=== PATIENT | female | born 1980 | race Caucasian/White ===

== ENCOUNTER 2018-02-02 14:08 | Emergency (ER) | payer MEDICAID, OTHER ==
[~2018-02-02] VITALS: Ht 162.6 cm; Wt 118.2 kg
[2018-02-02 14:15] VITALS: BP 188/119
== END 2018-02-02 15:01 | disposition home or self-care (01) ==
LOC: ER 14:08
DX: R32 Unspecified urinary incontinence (principal); Z88.5 Allergy status to narcotic agent; Z88.0 Allergy status to penicillin; Z88.1 Allergy status to other antibiotic agents
CPT/HCPCS: 99281

== ENCOUNTER 2018-02-08 17:35 | Emergency (ER) | payer MEDICAID, OTHER ==
[~2018-02-08] VITALS: Ht 162.6 cm; Wt 115.0 kg
[2018-02-08 18:02] VITALS: BP 133/80
[2018-02-08] MEDS ORDERED: CLIN300C85 PO (18:31)
[2018-02-08] MEDS ORDERED: IBUP-1984 PO (18:31)
== END 2018-02-08 18:40 | disposition home or self-care (01) ==
LOC: ER 17:36
DX: L02.416 Cutaneous abscess of left lower limb (principal); Z88.0 Allergy status to penicillin; Z88.6 Allergy status to analgesic agent; Z88.8 Allergy status to other drugs, medicaments and biological substances
CPT/HCPCS: 99283

== ENCOUNTER 2018-05-02 17:56 | Emergency (ER) | payer MEDICAID, OTHER ==
[~2018-05-02] VITALS: Ht 162.6 cm; Wt 117.9 kg
[~2018-05-02 17:56] MED LIST: CLIN-96 PO
[2018-05-02 18:12] VITALS: BP 138/91
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
[2018-05-02] MEDS ORDERED: CYCL-1 PO (19:32)
[2018-05-02] MEDS ORDERED: NAPR-56 PO (19:32)
[2018-05-02] MEDS ORDERED: cyclobenzaprine 10mg tablet PO ONE (19:35)
[2018-05-02] MEDS ORDERED: naproxen 500mg tablet PO ONE (19:35)
[2018-05-02] MEDS ORDERED: HYDROcodone/acetaminophen 10/325mg tab PO ONE (19:35)
== END 2018-05-02 20:14 | disposition home or self-care (01) ==
LOC: ER 17:56
DX: R07.81 Pleurodynia (principal); R05 Cough; F17.200 Nicotine dependence, unspecified, uncomplicated; Z88.0 Allergy status to penicillin; Z88.5 Allergy status to narcotic agent; Z88.1 Allergy status to other antibiotic agents; Z79.2 Long term (current) use of antibiotics; Z79.899 Other long term (current) drug therapy
CPT/HCPCS: 71045; 99284

== ENCOUNTER 2018-07-21 07:54 | Emergency (ER) | payer OTHER ==
[~2018-07-21] VITALS: Ht 162.6 cm; Wt 127.3 kg
[~2018-07-21 07:54] MED LIST changes: +CYCL-1 PO
[2018-07-21 07:55] VITALS: BP 147/50
[2018-07-21] MEDS ORDERED: CYCL-1 PO (08:26)
== END 2018-07-21 08:40 | disposition home or self-care (01) ==
LOC: ER 07:54
DX: S46.912A Strain of unspecified muscle, fascia and tendon at shoulder and upper arm level, left arm, initial encounter (principal); F17.200 Nicotine dependence, unspecified, uncomplicated; Z88.0 Allergy status to penicillin; Z88.5 Allergy status to narcotic agent; Z88.1 Allergy status to other antibiotic agents; Z79.899 Other long term (current) drug therapy; E66.01 Morbid (severe) obesity due to excess calories; Z68.42 Body mass index [BMI] 45.0-49.9, adult; X50.3XXA Overexertion from repetitive movements, initial encounter; Y93.89 Activity, other specified; Y92.89 Other specified places as the place of occurrence of the external cause; Y99.8 Other external cause status
CPT/HCPCS: 99283

== ENCOUNTER 2018-08-13 16:26 | Emergency (ER) | payer MEDICAID ==
[~2018-08-13] VITALS: Ht 162.6 cm; Wt 115.9 kg
--- NOTE | 2018-08-13 17:41 | NUR ---
Lab attempted to draw patients blood 6 times by to separate phlebotomists with no results. Will need to await room assignment for further attempts.
[2018-08-13] MEDS ORDERED: ondansetron/PF 4mg/2ml inj IV ONE (18:15)
[2018-08-13] MEDS ORDERED: ketorolac trometh. 30mg/ml inj. IV ONE (18:15)
[2018-08-13 18:54] LABS: BASOPHILS # (AUTO) 0.1 X10'3 (0-0.2); EOSINOPHILS # (AUTO) 0.3 X10'3 (0-0.9); EOSINOPHILS % (AUTO) 2.3 % (0-6); HEMATOCRIT 42.1 % (35.0-45.0); HEMOGLOBIN 13.9 g/dl (12.0-16.0); MEAN CORPUSCULAR HEMOGLOBIN 30.7 PG (27.0-31.0); MEAN CORPUSCULAR HGB CONC 33.1 g/dL (33.0-36.5); MEAN CORPUSCULAR VOLUME 92.7 FL (78-98); MEAN PLATELET VOLUME 7.5 FL (7.4-10.4); MONOCYTES # (AUTO) 1.1 X10'3 (0-0.9); MONOCYTES % (AUTO) 8.6 % (2-12); NEUTROPHILS # (AUTO) 8.9 X10'3 (1.8-7.7); NEUTROPHILS % (AUTO) 72.1 % (42-75); PLATELET COUNT 266 X10'3 (140-440); RED BLOOD COUNT 4.54 X10'6 (4.20-5.60); RED CELL DISTRIBUTION WIDTH 13.9 % (11.5-14.5); WHITE BLOOD COUNT 12.3 X10'3 (4.5-11.0)
[2018-08-13 19:04] LABS: ALANINE AMINOTRANSFERASE 25 U/L (12-78); ALBUMIN 2.8 G/DL (3.4-5.0); ALBUMIN/GLOBULIN RATIO 0.7 (1.1-1.5); ALKALINE PHOSPHATASE 100 IU/L (46-116); ANION GAP 4 (8-16); ASPARTATE AMINO TRANSFERASE 18 U/L (10-37); BILIRUBIN,TOTAL 0.7 MG/DL (0.1-1.0); BLOOD UREA NITROGEN 18 MG/DL (7-18); BUN/CREATININE RATIO 17.1 (6.6-38.0); CALCIUM 8.6 MG/DL (8.5-10.1); CHLORIDE 105 MMOL/L (99-107); CREATININE 1.05 MG/DL (0.40-0.90); GLUCOSE 85 MG/DL (70-104); SODIUM 137 MMOL/L (135-145); TOTAL PROTEIN 7.1 G/DL (6.4-8.2); eGFR 58 ML/MIN
[2018-08-13 19:10] LABS: PARTIAL THROMBOPLASTIN TIME 27 SECONDS (22-32)
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
[2018-08-13 19:37] LABS: URINE HCG NEGATIVE (NEG)
[2018-08-13 19:41] LABS: COLOR,URINE YELLOW (Yellow); GLUCOSE, URINE NEGATIVE (Neg); KETONES,URINE NEGATIVE (Neg); LEUKOCYTE ESTERASE ,URINE SMALL (Neg); NITRITES, URINE NEGATIVE (Neg); OCCULT BLOOD,URINE LARGE (Neg); PH,URINE 5.5 (4.8-8.0); PROTEIN,URINE 30 mg/dl (Neg); UROBILINOGEN,URINE 0.2 E.U/dL (0.2-1.0)
[2018-08-13 19:46] LABS: CLARITY,URINE SLIGHTLY CLOUDY (Clear); UA COLLECTION TYPE NON-SPECIFIED
[2018-08-13 19:47] LABS: BACTERIA,URINE FEW /HPF (Neg); SQUAMOUS EPITHELIAL CELL,UR FEW /LPF (FEW)
[2018-08-13 20:37] VITALS: BP 156/89
== END 2018-08-13 20:38 | disposition home or self-care (01) ==
LOC: ER 16:27
DX: R10.813 Right lower quadrant abdominal tenderness (principal); M54.5 Low back pain; R60.0 Localized edema; F12.90 Cannabis use, unspecified, uncomplicated; F17.200 Nicotine dependence, unspecified, uncomplicated; Z88.0 Allergy status to penicillin; Z88.1 Allergy status to other antibiotic agents; Z88.6 Allergy status to analgesic agent; Z79.899 Other long term (current) drug therapy; Z79.2 Long term (current) use of antibiotics; Z87.19 Personal history of other diseases of the digestive system; Z90.49 Acquired absence of other specified parts of digestive tract; Z98.890 Other specified postprocedural states
CPT/HCPCS: 36415; 71045; 74176; 80053; 81001; 81025; 84484; 85025; 85610; 85730; 87077; 87088; 87186; 93005; 96374; 96375; 99284; J1885; J2405

== ENCOUNTER 2019-10-02 03:29 | Emergency (ER) | payer MEDICAID ==
[~2019-10-02] VITALS: Ht 162.6 cm; Wt 122.0 kg
[~2019-10-02 03:29] MED LIST changes: -CLIN-96 PO; +CLIN-97 PO
[2019-10-02 03:36] VITALS: BP 177/108
[2019-10-02] MEDS ORDERED: LISI10TA4 PO (04:55)
[2019-10-02] MEDS ORDERED: ibuprofen tablet 400 MG TABLET PO ONE (04:55)
[2019-10-02] MEDS ORDERED: acetaminophen 325mg tablet PO ONE (04:55)
== END 2019-10-02 05:04 | disposition home or self-care (01) ==
LOC: ER 03:30
DX: M25.561 Pain in right knee (principal); Z76.0 Encounter for issue of repeat prescription; F12.90 Cannabis use, unspecified, uncomplicated; Z90.49 Acquired absence of other specified parts of digestive tract; Z88.0 Allergy status to penicillin; Z88.5 Allergy status to narcotic agent; Z88.1 Allergy status to other antibiotic agents; Z79.899 Other long term (current) drug therapy
CPT/HCPCS: 73564; 99283

== ENCOUNTER 2020-09-21 03:32 | Inpatient (IN) | payer MEDICAID ==
[~2020-09-21] VITALS: Ht 162.6 cm; Wt 165.0 kg
[~2020-09-21 03:32] MED LIST changes: +LISI10TA27 PO
[2020-09-21] MEDS ORDERED: normal saline 1000ML IV soln IV ONE (09:55)
[2020-09-21] MEDS ORDERED: ketorolac tromethamine 15mg/ml inj. IM ONE (09:55)
[2020-09-21 10:31] LABS: ALANINE AMINOTRANSFERASE 27 U/L (12-78); ALBUMIN 3.6 G/DL (3.4-5.0); ALBUMIN/GLOBULIN RATIO 0.8 (1.1-1.5); ALKALINE PHOSPHATASE 116 IU/L (46-116); ANION GAP 11 (8-16); ASPARTATE AMINO TRANSFERASE 30 U/L (10-37); BLOOD UREA NITROGEN 24 MG/DL (7-18); BUN/CREATININE RATIO 21.6 (6.6-38.0); C-REACTIVE PROTEIN 9.26 MG/DL (0.0-0.5); CALCIUM 8.4 MG/DL (8.5-10.1); CHLORIDE 103 MMOL/L (99-107); CREATININE 1.11 MG/DL (0.40-0.90); GLUCOSE 113 MG/DL (70-104); POTASSIUM 3.8 MMOL/L (3.5-5.1); SODIUM 138 MMOL/L (135-145); TOTAL CARBON DIOXIDE 24.4 MMOL/L (24-32); TOTAL PROTEIN 8.1 G/DL (6.4-8.2); eGFR 54 ML/MIN
[2020-09-21 10:33] LABS: BILIRUBIN,TOTAL 1.1 MG/DL (0.1-1.0)
[2020-09-21 10:37] LABS: BASOPHILS # (AUTO) 0.1 X10'3 (0-0.2); BASOPHILS % (AUTO) 0.5 % (0-1); EOSINOPHILS # (AUTO) 0.2 X10'3 (0-0.9); EOSINOPHILS % (AUTO) 1.5 % (0-6); HEMOGLOBIN 15.7 g/dl (12.0-16.0); LYMPHOCYTES # (AUTO) 1.7 X10'3 (1.1-4.8); LYMPHOCYTES % (AUTO) 15.1 % (21-51); MEAN CORPUSCULAR HEMOGLOBIN 30.7 PG (27.0-31.0); MEAN CORPUSCULAR HGB CONC 33.4 g/dL (33.0-36.5); MEAN CORPUSCULAR VOLUME 91.7 FL (78-98); MEAN PLATELET VOLUME 8.2 FL (7.4-10.4); NEUTROPHILS # (AUTO) 8.5 X10'3 (1.8-7.7); NEUTROPHILS % (AUTO) 73.9 % (42-75); PLATELET COUNT 294 X10'3 (140-440); RED BLOOD COUNT 5.13 X10'6 (4.20-5.60); RED CELL DISTRIBUTION WIDTH 13.9 % (11.5-14.5); WHITE BLOOD COUNT 11.5 X10'3 (4.5-11.0)
[2020-09-21] MEDS ORDERED: clindamycin 600mg/D5W 50ml 50 ML IV ONE (11:25)
[2020-09-21] MEDS ORDERED: HYDROcodone/acetaminophen 5mg/325mg tablet PO ONE (11:35)
[2020-09-21] MEDS ORDERED: sulfamethox/trimethoprim inj. 15 ML in dextrose 5% water 500ml 485 ML IV SCH ×3 (11:44→20:00)
[2020-09-21] MEDS ORDERED: sulfamethox/trimethoprim inj. 15 ML in dextrose 5% water 500ml 485 ML IV ONE (11:45)
--- NOTE | 2020-09-21 12:41 | NUR ---
called pharmacy to clarify bactrim iv rate as none is listed. stated that rate is 166ml/hour for this solution. pump set as directed
[2020-09-21] MEDS ORDERED: NO HOME MEDS (12:47)
--- NOTE | 2020-09-21 13:08 | NUR ---
PT MOVED TO MAIN ER BED 06 FOR ADMISSION
[2020-09-21] MEDS ORDERED: HYDROcodone/acetaminophen 5mg/325mg tablet PO PRN (14:05)
[2020-09-21] MEDS ORDERED: morphine 2 MG/ML inj. syringe IV PRN ×2 (14:05)
[2020-09-21] MEDS ORDERED: magnesium hydroxide 30ml (MOM) UD suspension PO PRN (14:05)
[2020-09-21] MEDS ORDERED: ondansetron/PF 4mg/2ml inj IV PRN (14:05)
[2020-09-21] MEDS ORDERED: acetaminophen 325mg tablet PO PRN ×2 (14:05)
[2020-09-21] MEDS ORDERED: mag hydrox/Alum hydrox/simeth 30ml oral suspension PO PRN (14:05)
[2020-09-21] MEDS: levoFLOXACIN-Levaquin 750MG/D5 150 ML IV SCH (18:00)
--- NOTE | 2020-09-21 18:39 | NUR ---
pt sleeping, breathing even and easy, VSS, meal given to pt. Continue monitoirng closely
[2020-09-21] MEDS: HYDROcodone/acetaminophen 10/325mg tab PO PRN (20:14)
--- NOTE | 2020-09-21 20:20 | NUR ---
swelling and redness delimited with blue pen. Md Vásquez at bedside and informed increase swelling since first interaction with pt @13pm Pt having pain, Narco given, refused morphine. VSS, pt denies taking medication at home or drugs. explains a cat bite her R arm. Continue monitoring closely
--- NOTE | 2020-09-21 20:25 | NUR ---
pt unable to move R arm due to pain and swelling. afebrile, CMS intact
--- NOTE | 2020-09-21 20:27 | NUR ---
pt unable to move R fingers due to pain and swelling. afebrile
--- NOTE | 2020-09-21 20:36 | NUR ---
Hosptalist Mark paged
--- NOTE | 2020-09-21 21:13 | NUR ---
Md Flores contated concerning pts hands. increase swelling, redness and pain since arrival in ED. Continue monitoring and control pain per md.
[2020-09-21] MEDS ORDERED: nicotine 21mg patch - 24 hr TD ONE (23:40)
[2020-09-22] MEDS ORDERED: CLINDAMYCIN/D5W 900mg/50ml 50 ML IV SCH
[2020-09-22] MEDS: HYDROcodone/acetaminophen 10/325mg tab PO PRN ×4 (00:16→21:53)
[2020-09-22 07:56] LABS: BASOPHILS % (AUTO) 0.7 % (0-1); EOSINOPHILS # (AUTO) 0.5 X10'3 (0-0.9); EOSINOPHILS % (AUTO) 6.6 % (0-6); HEMATOCRIT 42.6 % (35.0-45.0); LYMPHOCYTES # (AUTO) 1.8 X10'3 (1.1-4.8); LYMPHOCYTES % (AUTO) 24.7 % (21-51); MEAN CORPUSCULAR HEMOGLOBIN 30.7 PG (27.0-31.0); MEAN CORPUSCULAR HGB CONC 32.9 g/dL (33.0-36.5); MEAN CORPUSCULAR VOLUME 93.4 FL (78-98); MEAN PLATELET VOLUME 7.9 FL (7.4-10.4); MONOCYTES # (AUTO) 0.8 X10'3 (0-0.9); MONOCYTES % (AUTO) 10.4 % (2-12); NEUTROPHILS # (AUTO) 4.3 X10'3 (1.8-7.7); NEUTROPHILS % (AUTO) 57.6 % (42-75); PLATELET COUNT 250 X10'3 (140-440); RED BLOOD COUNT 4.57 X10'6 (4.20-5.60); RED CELL DISTRIBUTION WIDTH 13.9 % (11.5-14.5); WHITE BLOOD COUNT 7.4 X10'3 (4.5-11.0)
[2020-09-22 08:06] LABS: ALBUMIN 2.7 G/DL (3.4-5.0); ANION GAP 9 (8-16); BLOOD UREA NITROGEN 14 MG/DL (7-18); BUN/CREATININE RATIO 17.1 (6.6-38.0); CALCIUM 7.9 MG/DL (8.5-10.1); CHLORIDE 107 MMOL/L (99-107); CREATININE 0.82 MG/DL (0.40-0.90); GLUCOSE 100 MG/DL (70-104); SODIUM 141 MMOL/L (135-145); TOTAL CARBON DIOXIDE 25.5 MMOL/L (24-32); eGFR 76 ML/MIN
[2020-09-22] MEDS: levoFLOXACIN-Levaquin 750MG/D5 150 ML IV SCH (09:11)
[2020-09-22] MEDS: enoxaparin 40mg/0.4ml syringe SUBCUT SCH (09:11)
[2020-09-22] MEDS ORDERED: clindamycin-Cleocin 900mg/D5W 50 ML IV ONE (09:40)
[2020-09-22 13:56] LABS: C-REACTIVE PROTEIN 8.69 MG/DL (0.0-0.5)
[2020-09-22] MEDS: clindamycin-Cleocin 900mg/D5W 50 ML IV SCH ×2 (16:00→23:24)
--- NOTE | 2020-09-22 19:22 | NUR ---
The patient was moved to bed 23 in the ER overflow. She was updated on plan of care. She was changed into a hospital gown and her belongings were placed in a belongings bag. She was encouraged to keep her right arm elevated to help manage the edema in the hand area. She was given a pillow.
[2020-09-22] MEDS: lactobacillus rhamnosus 10,000 MMU CELLS/CAPSULE PO SCH (20:59)
[2020-09-22] MEDS: nicotine 21mg patch - 24 hr TD SCH (23:58)
--- NOTE | 2020-09-23 04:04 | NUR ---
The patient appears to be resting comfortably on her bed. She has been up to the bathroom several times during the night.
--- NOTE | 2020-09-23 06:31 | NUR ---
Milagros, it RN, speaking with patient. No distress observed.
[2020-09-23] MEDS: lactobacillus rhamnosus 10,000 MMU CELLS/CAPSULE PO SCH (07:16)
[2020-09-23] MEDS: enoxaparin 40mg/0.4ml syringe SUBCUT SCH (07:18)
[2020-09-23] MEDS: nicotine 21mg patch - 24 hr TD SCH (07:19)
[2020-09-23 07:46] VITALS: BP 154/96
[2020-09-23] MEDS: HYDROcodone/acetaminophen 10/325mg tab PO PRN (07:55)
[2020-09-23] MEDS: clindamycin-Cleocin 900mg/D5W 50 ML IV SCH (07:57)
[2020-09-23 08:03] LABS: BASOPHILS % (AUTO) 0.6 % (0-1); EOSINOPHILS # (AUTO) 0.4 X10'3 (0-0.9); EOSINOPHILS % (AUTO) 4.6 % (0-6); HEMATOCRIT 42.5 % (35.0-45.0); LYMPHOCYTES % (AUTO) 26.6 % (21-51); MEAN CORPUSCULAR HEMOGLOBIN 30.6 PG (27.0-31.0); MEAN CORPUSCULAR VOLUME 92.7 FL (78-98); MEAN PLATELET VOLUME 9.2 FL (7.4-10.4); MONOCYTES # (AUTO) 0.9 X10'3 (0-0.9); NEUTROPHILS # (AUTO) 4.3 X10'3 (1.8-7.7); NEUTROPHILS % (AUTO) 56.2 % (42-75); PLATELET COUNT 291 X10'3 (140-440); RED BLOOD COUNT 4.58 X10'6 (4.20-5.60); RED CELL DISTRIBUTION WIDTH 15.3 % (11.5-14.5); WHITE BLOOD COUNT 7.7 X10'3 (4.5-11.0)
[2020-09-23] MEDS: levoFLOXACIN-Levaquin 750MG/D5 150 ML IV SCH (09:13)
[2020-09-23] MEDS ORDERED: CLIN-91 PO (09:26)
[2020-09-23] MEDS ORDERED: HYDR-3965 PO (09:26)
[2020-09-23 09:40] LABS: ANION GAP 11 (8-16); BLOOD UREA NITROGEN 18 MG/DL (7-18); CALCIUM 8.4 MG/DL (8.5-10.1); CHLORIDE 108 MMOL/L (99-107); CREATININE 0.82 MG/DL (0.40-0.90); GLUCOSE 99 MG/DL (70-104); POTASSIUM 4.1 MMOL/L (3.5-5.1); SODIUM 141 MMOL/L (135-145); TOTAL CARBON DIOXIDE 21.6 MMOL/L (24-32); eGFR 76 ML/MIN
[2020-09-23 10:00] VITALS: BP 156/111
[2020-09-23] MEDS ORDERED: pneumococcal 23-VAL P-sac vacc 25 mcg/0.5ml vial IMVAC ONE (12:00)
[2020-09-23] MEDS ORDERED: COVID-19 VACC, MRNA(PFIZER)/PF--BNT162b2 syringe IMVAC ONE (14:00)
--- NOTE | 2020-09-23 14:36 | NUR ---
DC'D HOME WITH ALL BELONGINGS , DISCHARGE INSTRUCTION AND GREEN CARD FOR COVID-19 VACCINE. Addendum: 09/23/20 at 1439 by Maryan Martinez RN Amended: Links added.
== END 2020-09-23 14:32 | disposition home or self-care (01) | DRG 383 ==
LOC: ER 03:32 → UNDOADMIN 14:03 → ED HOLD 14:03 → ORTHO 4S 09-23 07:39
PROVIDERS: ADMIT Internal Medicine; ATTEND Internal Medicine
PROC: XW023U6 Introduction of COVID-19 Vaccine into Muscle, Percutaneous Approach, New Technology Group 6 (ICD-10-PCS; principal; 2020-09-23)
PROC: 3E0234Z Introduction of Serum, Toxoid and Vaccine into Muscle, Percutaneous Approach (ICD-10-PCS; 2020-09-23)
DX: L03.113 Cellulitis of right upper limb (principal); N17.9 Acute kidney failure, unspecified; E66.01 Morbid (severe) obesity due to excess calories; F17.210 Nicotine dependence, cigarettes, uncomplicated; F12.90 Cannabis use, unspecified, uncomplicated; M06.9 Rheumatoid arthritis, unspecified; Z68.44 Body mass index [BMI] 60.0-69.9, adult; Z88.0 Allergy status to penicillin; Z88.1 Allergy status to other antibiotic agents; Z23 Encounter for immunization; Z88.5 Allergy status to narcotic agent; Z90.49 Acquired absence of other specified parts of digestive tract; W55.01XA Bitten by cat, initial encounter; Y93.89 Activity, other specified; Y92.89 Other specified places as the place of occurrence of the external cause; Y99.8 Other external cause status
CPT/HCPCS: 36415; 73130; 80048; 80053; 83605; 83880; 84145; 85025; 85651; 86140; 87040; 87081; 90732; 91300; 96365; 96367; 96372; 99285; G0378; J1650; J1885; J1956; J3490; J7030; J7060